=== PATIENT | female | born 1940 | race Caucasian/White ===

== ENCOUNTER 2020-09-26 08:13 | Day surgery (SDC) | payer MEDICARE ==
[~2020-09-26] VITALS: Ht 160 cm; Wt 81.1 kg
[~2020-09-26 08:13] MED LIST: ACEDIPPM PO; ACETAMINOPHEN500 MG PO; AMOCLA875 PO; ASPI325 PO; ATOR40TA PO; CENTRUM SILVER1 EAC2 PO; CENTRUM SILVER1 EAC3 PO; CINNAMON PO; DILT120 PO; DORZOPSO BOTHEYES; FURO20 PO; HYDACE5 PO; LATA.005SO OU; LOSA50 PO; MAGOXI400 PO; MELO7.5 PO; METAMUCIL660 GM PO; METR500 PO; OMEGA-3 FISH O1 EAC6 PO; OXYB5ER PO; POTA20PAC; SIMV20 PO; TIMO.25OPS OU; TIMO.5OPSO BOTHEYES; TRAZ150T57; Xalatan2.5 ML BOTHEYES; ZADITOR5 M1 BOTHEYES
== END 2020-09-26 10:00 | disposition home or self-care (01) ==
LOC: ORSCSDS 08:13
PROVIDERS: Ophthalmology
PROC: 08RJ3JZ Replacement of Right Lens with Synthetic Substitute, Percutaneous Approach (ICD-10-PCS; principal; 2020-09-26 09:30)
DX: H25.11 Age-related nuclear cataract, right eye (principal); I10 Essential (primary) hypertension; E78.5 Hyperlipidemia, unspecified; Z86.718 Personal history of other venous thrombosis and embolism; Z79.899 Other long term (current) drug therapy; Z87.891 Personal history of nicotine dependence
CPT/HCPCS: J2001; J2250; J3010; J3301; J7040; V2632

== ENCOUNTER 2024-05-17 12:41 | Day surgery (SDC) | payer MEDICARE ==
[~2024-05-17] VITALS: Ht 160 cm; Wt 70.3 kg
[~2024-05-17 12:41] MED LIST changes: +Balanced Salt Epinephrine Irrigation Solution 500 mL IR SCH; +Lidocaine HCl/Pf 1% 5 ML VIAL XX SCH; +Moxifloxacin HCL 0.5 MG/0.1 ML 0.4MLSYR LEFTEYE SCH; +NS 500 ML IV ONE; +PHENYLEPHRINE\\TROPICAMIDE\\TETRACAINE OPHTHALMIC DILATING SOLN LEFTEYE PRN; +Povidone-Iodine 450 DROP/30 ML Solution LEFTEYE SCH; +Povidone-Iodine 450 DROP/30 ML Solution ONE; +Tetracaine HCl/Pf 0.5% Opth Soln 4 ml ONE
[2024-05-17] MEDS ORDERED: NS 500 ML IV ONE ×2 (13:10→13:46)
[2024-05-17] MEDS ORDERED: FentaNYL Citrate 50 MCG/ML 2 ML Injection ONE (13:11)
--- NOTE | 2024-05-17 13:11 | NUR ---
05/17/24 1311 Nisha Cali CALL LIGHT WITHIN REACH. TETRACAINE IN LEFT EYE AT 1306 AND PLEDGETT IN AT 1307
[2024-05-17] MEDS ORDERED: Midazolam HCl 1MG / ML 2ML Vial ONE (13:12)
[2024-05-17 13:55] VITALS: BP 115/52
== END 2024-05-17 14:30 | disposition home or self-care (01) ==
LOC: ORSCSDS 12:41
PROVIDERS: Student in an Organized Health Care Education/Training Program
PROC: 08RK3JZ Replacement of Left Lens with Synthetic Substitute, Percutaneous Approach (ICD-10-PCS; principal; 2024-05-17 14:30)
DX: H25.813 Combined forms of age-related cataract, bilateral (principal); H40.1132 Primary open-angle glaucoma, bilateral, moderate stage; Z96.1 Presence of intraocular lens; I10 Essential (primary) hypertension; Z86.718 Personal history of other venous thrombosis and embolism; Z79.899 Other long term (current) drug therapy
CPT/HCPCS: J2250; J3010; J7040; V2632